=== PATIENT | male | born 1980 ===

== ENCOUNTER 2017-01-31 06:38 | Emergency (ER) | payer MEDICAID ==
--- NOTE | 2017-01-31 07:25 | ED PDOC ---
HPI: Psych/Substance Abuse Time Seen by Provider: 01/31/17 07:04 Chief Complaint (Nursing): Substance Abuse Chief Complaint (Provider): Substance Abuse ED Caveat: Intoxicated History Per: Patient History/Exam Limitations: intoxication Onset/Duration Of Symptoms: Mins (prior to arrival) Current Symptoms Are (Timing): Still Present Additional Complaint(s): Mark Donis is a 36 year old male with previous medical history of diabetes, who presents to the emergency department via EMS for an evaluation of intoxication after he was found naked in public prior to arrival and admitted to alcohol and PCP use. Denied any trauma, injury or further medical complaints. Upon arrival to ED, he also stated he has been non-compliant with diabetes medication. PMD: none provided Past Medical History Reviewed: Historical Data, Nursing Documentation, Vital Signs Vital Signs: Last Vital Signs Temp 98.2 F 01/31/17 06:43 Pulse 97 H 01/31/17 06:43 Resp 18 01/31/17 06:43 BP 154/89 H 01/31/17 06:43 Pulse Ox 96 01/31/17 06:43 - Medical History PMH: Diabetes - Family History Family History: States: Unknown Family Hx - Social History Current smoker - smoking cessation education provided: Yes Alcohol: Occasional Drugs: Other (pcp) - Allergies Allergies/Adverse Reactions: Allergies Allergy/AdvReac Type Severity Reaction Status Date / Time No Known Allergies Allergy Verified 01/31/17 06:42 Review of Systems Review Of Systems: ROS cannot be obtained secondary to pt's inabilty to answer questions. (intoxication) Physical Exam - Reviewed Nursing Documentation Reviewed: Yes Vital Signs Reviewed: Yes - Physical Exam Appears: Positive for: Well (but intoxication), Non-toxic, No Acute Distress Head Exam: Positive for: ATRAUMATIC, NORMAL INSPECTION, NORMOCEPHALIC Neck: Positive for: Normal Cardiovascular/Chest: Positive for: Regular Rate, Rhythm. Negative for: Chest Non Tender Respiratory: Positive for: Normal Breath Sounds, Accessory Muscle Use. Negative for: Decreased Breath Sounds, Respiratory Distress Gastrointestinal/Abdominal: Positive for: Normal Exam, Bowel Sounds, Soft. Negative for: Tenderness Extremity: Positive for: Normal ROM. Negative for: Tenderness, Pedal Edema, Deformity, Other (gross trauma) Neurologic/Psych: Positive for: Alert, Mood/Affect (cooperative), Other (poor insight; mild slurred speech). Negative for: Oriented, Motor/Sensory Deficits - Laboratory Results Result Diagrams: 01/31/17 07:20 01/31/17 07:20 - ECG O2 Sat by Pulse Oximetry: 96 (RA) Pulse Ox Interpretation: Normal Medical Decision Making Medical Decision Making: Initial Impression: Intoxication Initial Plan: * Alcohol serum * CMP * Troponin I * CBC * Accucheck Time: 0830 --Patient is awake and alert. labs reviewed, mild hyperglycemia, etoh neg 10am- awake, ambulating, clear speech cooperative, denies SI/HI, and stable gait. DC from ED. Friend accompanying home. Encouraged to avoid drugs and alcohol. Scribe Attestation: Documented by Gayla Ramirez, acting as a scribe for Darien Ibrahim III, DO. Provider Scribe Attestation: All medical record entries made by the Scribe were at my direction and personally dictated by me. I have reviewed the chart and agree that the record accurately reflects my personal performance of the history, physical exam, medical decision making, and the department course for this patient. I have also personally directed, reviewed, and agree with the discharge instructions and disposition. Disposition - Clinical Impression Clinical Impression: Drug abuse - Patient ED Disposition Is Patient to be Admitted: No Counseled Patient/Family Regarding: Studies Performed, Diagnosis, Need For Followup - Disposition Disposition: Routine/Home Disposition Time: 10:10 Condition: STABLE Additional Instructions: Avoid drugs or alcohol Instructions: Polysubstance Abuse (ED), Methamphetamine Abuse (ED) Forms: XDC (Scottish)
[2017-01-31 07:34] LABS: BASO % 0.3 % (0.0-2.0); EOS # 0.1 K/uL (0.0-0.7); EOS % 0.6 % (0.0-4.0); LYMPH # 1.7 K/uL (1.0-4.3); MEAN CELL VOLUME 87.2 fl (80.0-94.0); MEAN CORPUSCULAR HEMOGLOBIN 28.8 pg (27.0-31.0); MEAN PLATELET VOLUME 8.1 fl (7.2-11.7); MONO # 0.9 K/uL (0.0-0.8); MONO % 8.1 % (0.0-10.0); NEUT # 8.7 K/uL (1.8-7.0); WHITE BLOOD COUNT 11.4 K/uL (4.8-10.8)
[2017-01-31 07:53] VITALS: RESP 19
[2017-01-31 08:03] LABS: ALB/GLOB RATIO 1.5 (1.0-2.1); ALCOHOL SERUM < 10 mg/dl (0-10); ALKALINE PHOSPHATASE 56 U/L (38-126); ALT/SGPT 49 U/L (21-72); AST/SGOT 24 U/L (17-59); BILIRUBIN,TOTAL 0.5 mg/dl (0.2-1.3); BLOOD UREA NITROGEN 17 mg/dl (9-20); CALCIUM 9.5 mg/dL (8.4-10.2); CARBON DIOXIDE 22 mmol/L (22-30); CHLORIDE 108 mmol/L (98-107); GFR AFRICAN-AMERICAN > 60; GLUCOSE,RANDOM 222 mg/dL (75-110); SODIUM 146 mmol/l (132-148); TOTAL PROTEIN 7.3 G/DL (6.3-8.2)
[2017-01-31 10:29] VITALS: BP 120/78; PULSE 78; TEMP 97; O2SAT 98
== END 2017-01-31 10:29 | disposition home or self-care (01) ==
LOC: H.ER 06:38
DX: F19.10 Other psychoactive substance abuse, uncomplicated (principal)